=== PATIENT | female | born 1995 | race Caucasian/White ===

== ENCOUNTER 2024-05-04 08:11 | Inpatient (IN) | payer OTHER, SELFPAY ==
[2024-05-02 20:52] VITALS: BP 136/90
[2024-05-02 21:14] LABS: % Basophils 0.3 % (0-2); % Eosinophils 0.2 % (0-6); % Immature Granulocytes 0.6 % (0-0.5); % Lymphocytes 13.2 % (20.5-51.1); % Monocytes 7.5 % (1.7-9.3); % Neutrophils 78.2 % (42.2-75.2); Absolute Basophils 0.1 10^3/uL (0-0.2); Absolute Immature Granulocytes 0.1 10^3/uL (0-0.05); Absolute Lymphocytes 2.2 10^3/uL (1.2-3.4); Absolute Monocytes 1.3 10^3/uL (0.1-0.6); Hemoglobin 13.9 g/dL (12.0-16.0); Mean Corp Hgb Conc. 35.6 g/dL (33.0-37.0); Mean Corpuscular Hgb 30.8 pg (27.0-31.0); Mean Corpuscular Volume 86.5 fL (81.0-99.0); Mean Platelet Volume 9.6 fL (7.4-10.4); Nucleated Red Blood Cells % 0 %; Platelet Count 230 10^3/uL (130-400); Red Blood Cell Count 4.51 10^6/uL (4.20-5.40); Red Cell Dist. Width 11.1 % (11.5-14.5); White Blood Cell Count 16.6 10^3/uL (4.8-10.8)
[2024-05-02 21:17] LABS: Urine Albumin Negative (Neg - Trace); Urine Bilirubin Negative (Negative); Urine Character Clear (Clear); Urine Color Yellow; Urine Glucose Negative (Negative); Urine Ketone Negative (Negative); Urine Leukocyte Negative (Negative); Urine Nitrite Negative (Negative); Urine Occult Blood Negative (Negative); Urine Specific Gravity 1.015 (<1.030); Urine Urobilinogen Negative (Neg - 1+)
[2024-05-02 21:24] LABS: HCG, Serum Qualitative Screen Negative
--- NOTE | 2024-05-02 21:29 | ED.GENMED ---
History of Present Illness
General
Chief Complaint: Abdominal Pain
Source: patient
Exam Limitations: none
Time Seen by Provider: 05/02/24 21:18
Nursing documentation reviewed up to this point in time: agreed with
History of Present Illness
History of Present Illness:
29-year-old female presents to the ER for right lower quadrant abdominal pain. She says last week she had 24 hours of nausea/vomiting/diarrhea. Afterwards she had general bloating sensation for a few days and then she started to develop
periumbilical pain and fever over the weekend. Since then pain is localized to the right lower quadrant and has been constant and worsening. Has had continued fevers and so she was referred to the ER for assessment. She reports associated
anorexia. She has not had any dysuria, hematuria, change in frequency. Denies any vaginal bleeding or discharge. She denies any other complaints. She denies prior abdominal surgeries.
Review of Systems
Review of Systems
All Other Systems: ROS reviewed and negative except as documented in HPI and ROS
Constitutional: Reports fever and chills
Respiratory: Denies cough or trouble breathing
Cardiac: Denies chest pain
ABD/GI: Reports abdominal pain; Denies nausea, vomiting or diarrhea
: Denies dysuria, flank pain or bleeding
Musculoskeletal: Denies neck pain or back pain
Neurological: Denies headache
Phy Exam
Physical Exam
Physical Exam:
General: Awake, alert, oriented x3; no acute distress
Head: Normocephalic, atraumatic
Eyes: Conjunctiva normal, sclera anicteric
Throat: Airway intact, handling secretions
Neck: Trachea midline, supple without meningismus
Lungs: Clear to auscultation bilaterally, no wheezing, rales, rhonchi
Heart: Tachycardia with regular rhythm, no murmurs, gallops, or rubs
Abd: Soft, non distended, tender to palpation in the right lower quadrant with voluntary guarding
Back: No CVA tenderness
Neuro: No gross deficits
Skin: no rash
Extremities: Warm and well-perfused
Scores
Heart Failure Risk
Heart Failure Risk Score: Not Applicable
Heart Score for Chest Pain Patients
STEMI patient?: Not applicable
Withdrawal Assessment of Alcohol
Withdrawal Assessment Completed?: Not applicable
Sepsis
Sepsis Screening
Sepsis Assessment: Sepsis
Sepsis Screen
Sepsis Screen: Sepsis
Date: 05/02/24
Time: 23:34
Course
Orders/Labs/Results
Orders:
Orders
05/02/24 20:59
Test Result ONCE
05/02/24 21:04
Complete Blood Count/With Diff Urgent
Comprehensive Metabolic Panel Urgent
HCG, Serum Qualitative Screen Urgent
Lipase Urgent
05/02/24 21:06
Urinalysis Reflex To Culture Urgent
Date Specimen was Collected: 05/02/24
Time Specimen was Collected: 20:59
05/02/24 21:18
Iohexol [Omnipaque] See Protocol PO NOW STA
05/02/24 21:28
CT Abd/pelvis W Iv Cont Urgent
Comment:
Reason For Exam: RLQ pain
Acetaminophen [Tylenol] 1,000 mg PO NOW STA
05/02/24 21:45
0.9% Sodium Chloride 1000 ml [Nss] 1,000 ml IV 125 mls/hr
05/02/24 22:14
Piperacillin/Tazo 3.375 Gram [Zosyn] 3.375 gram in 50 ml IV NOW
05/02/24 22:15
0.9% Sodium Chloride 1000 ml [Nss] 1,000 ml IV BOLUS
Abnormal Lab Results
05/02/24
21:04
WBC 16.6 H 10^3/uL
(4.8-10.8)
RDW 11.1 L %
(11.5-14.5)
Abs Immat Gran (auto) 0.1 H 10^3/uL
(0-0.05)
Absolute Neuts (auto) 13.0 H 10^3/uL
(1.4-6.5)
Absolute Monos (auto) 1.3 H 10^3/uL
(0.1-0.6)
Immature Gran % 0.6 H %
(0-0.5)
Neutrophils % 78.2 H %
(42.2-75.2)
Lymphocytes % 13.2 L %
(20.5-51.1)
Sodium 134 L mmol/L
(135-145)
Chloride 96 L mmol/L
(98-107)
Glucose 118 H mg/dl
(70-99)
05/02/24 21:04
05/02/24 21:04
Vital Signs
Initial and Last Documented VS:
Initial Vital Signs
Temp Pulse Resp BP Pulse Ox
38.7 C H 129 18 136/90 96
05/02/24 20:52 05/02/24 20:52 05/02/24 20:52 05/02/24 20:52 05/02/24 20:52
Last Documented Vital Signs
Temp Pulse Resp BP Pulse Ox
37.6 C 129 18 128/80 98
05/02/24 22:49 05/02/24 20:52 05/02/24 20:52 05/02/24 23:00 05/02/24 23:00
MDM/Problems Addressed
Differential Diagnosis Includes:
Appendicitis, UTI, enteritis, ovarian cyst
MDM/Problems Addressed:
29-year-old female presents for evaluation of right lower quadrant pain and fever as described above. Febrile and tachycardic here but normotensive, normal pulse ox and respiratory rate. Physical exam as above. High clinical suspicion for
appendicitis. She had labs sent in triage including a CBC which showed a leukocytosis to 16.6. CMP is pending. Her hCG is negative. Her urinalysis is negative for infection. Will send for CT abdomen pelvis. Tylenol for fever. Maintenance
fluids, n.p.o. Reassess.
CT shows findings concerning for ruptured appendicitis with adjacent abscess. Patient given Zosyn. Discussed with general surgery who will admit to their service.
*Radiology
Radiology exam reviewed: radiology read reviewed
*Pulse Oximetry
Patient hypoxic: no
*Critical Care Note
Total Time (30-74mins, 75-104mins- exclusive of procedures): Not Applicable
Data Reviewed
Source: patient
Patient Management
Discussion with other providers: Missile Pad Mechanic (Discussed with general surgery) and Radiologist (Discussed with radiologist)
Escalation/DeEscalation of care consider admission/obs:
Admission indicated
ED Attending Note
-
Portions of this chart may have been created with voice recognition software.� Occasional wrong word or��sound alike� substitutions may have occurred due to the inherent limitations of voice recognition software.
Discharge Plan
Departure
Patient Disposition: Admit
Date of Disposition: 05/02/24
Time of Disposition: 22:59
Admit to doctor: Farhad
Presentation/result/management discussed w/ accepting MD/DO: Surgery
Discharge Problem:
Acute appendicitis
Prescriptions:
No Action
No Current Medications
0
Referrals:
Ileana Guillen MD [Family Provider] -
Interventions
Interventions:
*Risk Screen - Suicide Last Done: 05/02/24 20:55
*General Assessment Last Done: 05/02/24 20:55
*Neglect/Abuse Screening Last Done: 05/02/24 20:55
*ED- Fall Risk Assessment Last Done: 05/02/24 21:49
*ED COVID-19 Vaccine History Last Done: 05/02/24 21:49
NA-Xzpnsd-Irjmixblqo Assessment Last Done: 05/02/24 21:49
Discharge Date and Time
Print Language: BENINESE
[2024-05-02 21:34] VITALS: BP 132/85
[2024-05-02 21:35] LABS: ALT (SGPT) 17 U/L (0-35); AST (SGOT) 21 U/L (14-36); Albumin 4.5 g/dl (3.5-5.0); Alkaline Phosphatase 89 U/L (38-126); Blood Urea Nitrogen 9 mg/dl (7-17); Calcium 9.2 mg/dl (8.4-10.2); Carbon Dioxide 25 mmol/L (22-30); Chloride 96 mmol/L (98-107); Glucose 118 mg/dl (70-99); Potassium 3.9 mmol/L (3.5-5.1); Sodium 134 mmol/L (135-145); Total Bilirubin 0.9 mg/dl (0.2-1.3); Total Protein 7.6 g/dl (6.3-8.2); eGFR > 60.00
[2024-05-02 21:36] LABS: Lipase 88 U/L (23-300)
[2024-05-02] MEDS: TYLENOL 1000 MG PO (21:41)
[2024-05-02] MEDS: NSS 1000 IV ×2 (21:41→22:23)
[2024-05-02 21:49] VITALS: BMI 28.5
[2024-05-02 22:11] VITALS: BP 125/81
[2024-05-02] MEDS: ZOSYN 50 IV (22:22)
[2024-05-02 23:00] VITALS: BP 128/80
[2024-05-03] VITALS (7 sets, daily range): BP systolic 108–127; BP diastolic 66–78; BMI 25.9
--- NOTE | 2024-05-03 01:45 | HPS.HSE ---
Addendum entered and electronically signed by Pop Johnson MD 05/03/24 09:15:
I saw and examined the patient independently.
The Real Estate Appraiser Supervisor's note was reviewed and I agree with the note, assessment and plan except where noted below.
Comment: This is a 29-year-old female with no significant past medical or surgical history who presents with a nearly 1 week history of right lower quadrant abdominal pain with associated nausea, vomiting and diarrhea all of which have resolved. On
arrival she was febrile, tachycardic and had a leukocytosis to 16K. Focally tender to palpation in the right lower quadrant, without generalized peritonitis. I reviewed her CT scan personally which demonstrated a very dilated appendix with
significant inflammation in the right lower quadrant and free fluid extending down to the pelvis and an adjacent abscess was read by the overnight radiologist. She is clinically stable on antibiotics now.
After discussion of risk benefits and alternatives with the patient and her mother, we will plan for nonoperative management for now as she is at high risk for needing an ileus cecectomy and potentially open surgery.
IR consult for possible drain
N.p.o. for now, if no IR plans today will start with clears.
Continue IV antibiotics, IV fluids.
Original Note:
Family Physician
-
Family Physician: Ileana Guillen
Chief Complaint
-
Abdominal pain
History of Present Illness
Patient is a 29-year-old female with no significant past medical history who presents to the ER for right lower quadrant abdominal pain. She says last week she had 24 hours of nausea/vomiting/diarrhea. Afterwards she had general bloating sensation
for a few days and then she started to develop periumbilical pain and fever over the weekend. Since then pain is localized to the right lower quadrant and has been constant and worsening. She has had continued fevers and was referred to the ER for
assessment. She reports associated anorexia. She has not had any dysuria, hematuria, change in frequency. Denies any vaginal bleeding or discharge. She denies any other complaints. She denies prior abdominal surgeries.
In the emergency department, labs significant for leukocytosis, WBC 16.6, Na 134, Chloride 96, Glucose 116. HCG negative, Urinalysis negative for infection. Pt febrile oral temp 101.6 on admission to the ED and tachycardic, HR 129. Improved with
Acetaminophen.
CT abd/pelvis shows findings concerning for ruptured appendicitis with adjacent abscess.
Patient received IV fluids, Acetaminophen 1 g IV x 1, IV antibiotics - Zosyn 3.375 IV
ED provider, Dr. Steven Baig, discussed with General Surgery, Dr. Alatorre, who will admit patient to his service. Maintain IV fluids, NPO, IV antibiotics, pain medication and antiemetics.
Medical History
Past Medical History
Past Medical History: Reports None
Past Surgical History: Reports Other (wisdom teeth removal at age 15)
Social History
Tobacco: Non-smoker
Alcohol: Occasional
Drug: None
Personal: Single
Living: Other (lives with boyfriend)
Employment: Employed
Family History
Family History: Not pertinent
Allergies / Home Medications
Allergies reflects when Allergies were last updated in [facility].
Home Medications with original date entered in [facility]
Allergy/Medication List:
Patient Allergies
Allergy/AdvReac Type Severity Reaction Status Date / Time
No Known Allergies Allergy Unverified 05/02/24 20:54
Home Medications
�Medication �Instructions �Recorded
No Meds [No Current Medications] 05/02/24
Review of Systems
-
History Source: Patient
A 12 point ROS was completed and negative except as noted: Yes
Constitutional: Reports Fever, Weight Loss and Chills
EENT: Reports No Symptoms
Respiratory: Reports No Symptoms
Cardiac: Reports No Symptoms
Abdomen/GI: Reports Abdominal Pain (right lower quadrant)
: Reports No Symptoms
Musculoskeletal: Reports No Symptoms
Skin: Reports No Symptoms
Neurological: Reports No Symptoms
Endocrine: Reports No Symptoms
Hematologic/Lymphatic: Reports No Symptoms
Psych: Reports Calm
Physical Exam
Vital Signs
Vital Signs
Temp Pulse Resp BP Pulse Ox
99.6 F 129 18 116/71 97
05/02/24 22:49 05/02/24 20:52 05/02/24 20:52 05/03/24 00:00 05/03/24 00:45
Physical Exam
General: No Apparent Distress, Pain (tender right lower quadrant) and Fever
HEENT: Moist mucous membranes and PERRLA
Respiratory: Clear and Non Labored Respirations
Cardiac: S1/S2, Regular Rhythm and Tachycardia
GI: Tender (right lower quadrant)
Skin: Warm; No Jaundice
Neuro: AO x 3
Psych: Calm and Intact Judgment/Insight
Laboratory Results
-
Laboratory Results
Total Bilirubin 0.9 mg/dl (0.2-1.3) 05/02/24 21:04
AST 21 U/L (14-36) 05/02/24 21:04
ALT 17 U/L (0-35) 05/02/24 21:04
Alkaline Phosphatase 89 U/L (38-126) 05/02/24 21:04
Lipase 88 U/L (23-300) 05/02/24 21:04
Data Reviewed
-
CT Scan: Report Reviewed by me
Lab Data: Labs Reviewed by me
Impression/Plan
-
IMPRESSION:
Patient is a 29-year-old female with no significant past medical history who presents to the ER for right lower quadrant abdominal pain.
PLAN:
Acute abdominal pain/Acute appendicitis
Admit patient to General Surgery, Dr. Llamas
NPO at midnight
NSS @ 100 mls/hr
Continue IV antibiotics - Zosyn 3.375 g IV Q6H
Pain medications/antimetics PRN
DVT Prophylasixs: SCD's
Code Status: Full Code
[2024-05-03] MEDS: ZOSYN 50 IV ×4 (04:11→22:32)
--- NOTE | 2024-05-03 07:12 | PTCARENOTE ---
Pt admitted from ED into room 2130. Pt ambulatory to bed with no assistance. VSS. NSS @ 100ml/hr in R AC. Pt completed first round of CHG wipes and changed clothes. NPO maintained. Pt with no complaints at this time, call quiles within reach.
[2024-05-03 08:20] LABS: Hematocrit 34.4 % (37.0-47.0); Hemoglobin 12.1 g/dL (12.0-16.0); Mean Corp Hgb Conc. 35.2 g/dL (33.0-37.0); Mean Corpuscular Volume 88.2 fL (81.0-99.0); Mean Platelet Volume 10.1 fL (7.4-10.4); Platelet Count 211 10^3/uL (130-400); Red Cell Dist. Width 11.3 % (11.5-14.5); White Blood Cell Count 12.6 10^3/uL (4.8-10.8)
[2024-05-03 08:28] LABS: INR 1.16; PT 15.3 Sec (11.4-14.6)
[2024-05-03 09:19] LABS: Blood Urea Nitrogen 8 mg/dl (7-17); Calcium 8.5 mg/dl (8.4-10.2); Carbon Dioxide 25 mmol/L (22-30); Chloride 105 mmol/L (98-107); Estimated Creatinine Clearance 105 ml/min; Glucose 95 mg/dl (70-99); Potassium 3.9 mmol/L (3.5-5.1); Sodium 138 mmol/L (135-145); eGFR > 60.00
[2024-05-03] MEDS: NSS 1000 IV ×3 (09:34→22:35)
--- NOTE | 2024-05-03 11:49 | CM ---
Reviewed the chart notes and spoke with the patient and her parents at the bedside. The patient is admitted under observational status. The observational letter was provided and explained. CM answered questions regarding observational status to
best of her ability and directed the patient to contact insurance company with any additional questions.
The patient resides with her boyfriend in a second floor apartment with a flight of steps to enter. The patient will be staying with her parents at discharge for a couple of days during recovery. The patient reports no DME/VN/SNF in the past. The
patient confirmed her pharmacy of choice is the [facility]. CM continues to be available to patient/family and is monitoring medical plan for needs at discharge.
Plan: Discharge plans will depend on the patient's progress.
[2024-05-03] MEDS: TYLENOL 650 MG PO ×2 (15:26→19:53)
--- NOTE | 2024-05-03 18:33 | W.PN.UPDATE ---
Update Note
Progress Note Update
Patient seen and examined on evening rounds. Patient is up and about walking around the room, states her pain is well-controlled and that she had no issues with clear liquids. No diffuse tenderness or guarding. Still focally tender in the right
lower quadrant. Still fairly tachycardic but comfortable.
Will continue with plan as discussed earlier. Likely repeat CT scan on Wednesday and if there is a collection IR drain. I anticipate her being here through till Wednesday with course of oral antibiotics.
May need to get ID on board for home recs
If we are able to control this infection with drain and antibiotics we will plan for discharge with follow-up in 6 to 8 weeks for interval appendectomy.
[2024-05-04] MEDS: TYLENOL 650 MG PO ×4 (01:44→20:51)
[2024-05-04] MEDS: ZOSYN 50 IV ×4 (04:14→23:20)
[2024-05-04 07:46] VITALS: BP 123/76
--- NOTE | 2024-05-04 09:50 | CM ---
Reviewed the chart and spoke with the patient and her father at the bedside. Informed that the patient had a level of care change to inpatient. Patient ambulating around ad osmel. CM continues to be available to patient/family and is monitoring
medical plan for needs at discharge.
Plan: Discharge to home when medically stable. Parents will transport home.
--- NOTE | 2024-05-04 10:16 | W.PN.GS2 ---
Today's Communication / Plan
-
`
Assessment / Plan
-
Assessment: 29-year-old female with complicated acute appendicitis -perforation with phlegmon; no drainable abscess
Significant inflammatory reaction and surrounding soft tissue, cecum and terminal ileum with 1 week of symptoms
Tmax 103; afebrile since vital signs stable
Abdominal examination with localized rebound but no signs of generalized peritonitis
Given severity of acute appendicitis with surrounding phlegmon which would make appendectomy quite challenging and high risk for probable ileocecectomy we have elected to manage nonoperatively which patient appears to be adequately responding to.
Plan: Okay for full liquids but holding on further dietary advancement
Continue Zosyn
Will repeat CT imaging tomorrow 05/05/2024 to assess for stability/improvement
Repeat CBC tomorrow
Any of the patient's or her father's concerns or questions were confirmed to be fully addressed
Subjective Data
-
Date of Service: May 04, 2024
Patient seen and examined. Father at bedside.
She has been walking the hallways comfortably
Right lower quadrant pain essentially unchanged and described as being very mild.
Appetite fair, no nausea, no vomiting
Tolerating clear liquids but not much appetite for more food
Passing flatus and loose bowel movements
Feels a bit bloated -no worse than recently
Objective Data
-
Intake and Output
05/03/24 05/04/24 05/05/24
06:59 06:59 06:59
Intake Total 400 / 400 4020 / 4020
Balance 400 / 400 4020 / 4020
Intake:
Oral fluids 0 / 0 1370 / 1370
IV fluids (Total) 400 / 400 2450 / 2450
IV piggybacks 200 / 200
Other:
Number of approximated MODERATE 4 3
amounts of urine
Vital Signs
Temp Pulse Resp BP Pulse Ox
99.6 F 94 18 123/76 95
05/04/24 07:46 05/04/24 07:46 05/04/24 07:46 05/04/24 07:46 05/04/24 07:46
Lab Results
05/03/24 07:39
05/03/24 07:39
Calcium 8.5 mg/dl (8.4-10.2) 05/03/24 07:39
Total Bilirubin 0.9 mg/dl (0.2-1.3) 05/02/24 21:04
AST 21 U/L (14-36) 05/02/24 21:04
ALT 17 U/L (0-35) 05/02/24 21:04
Alkaline Phosphatase 89 U/L (38-126) 05/02/24 21:04
Total Protein 7.6 g/dl (6.3-8.2) 05/02/24 21:04
Albumin 4.5 g/dl (3.5-5.0) 05/02/24 21:04
Physical Exam
-
NAD AAOx3; comfortably standing at bedside and laid supine in hospital bed without any significant discomfort
ABD: Soft, nondistended, tenderness to palpation localizing to the right lower quadrant with voluntary guarding. No generalized tenderness. No percussion tenderness even in the right lower quadrant.
[2024-05-04 15:04] VITALS: BP 123/78
[2024-05-04 23:39] VITALS: BP 121/71
[2024-05-05] MEDS: TYLENOL PO (03:21)
[2024-05-05] MEDS: ZOSYN 50 IV ×4 (05:08→21:36)
[2024-05-05 07:03] LABS: % Basophils 0.2 % (0-2); % Eosinophils 2.5 % (0-6); % Immature Granulocytes 0.7 % (0-0.5); % Lymphocytes 16.8 % (20.5-51.1); % Monocytes 8.6 % (1.7-9.3); % Neutrophils 71.2 % (42.2-75.2); Absolute Eosinophils 0.2 10^3/uL (0-0.7); Absolute Immature Granulocytes 0.1 10^3/uL (0-0.05); Absolute Lymphocytes 1.4 10^3/uL (1.2-3.4); Absolute Monocytes 0.7 10^3/uL (0.1-0.6); Absolute Neutrophils 5.9 10^3/uL (1.4-6.5); Hematocrit 33.3 % (37.0-47.0); Hemoglobin 11.3 g/dL (12.0-16.0); Mean Corp Hgb Conc. 33.9 g/dL (33.0-37.0); Mean Corpuscular Hgb 30.3 pg (27.0-31.0); Mean Corpuscular Volume 89.3 fL (81.0-99.0); Mean Platelet Volume 10.1 fL (7.4-10.4); Nucleated Red Blood Cells % 0 %; Platelet Count 199 10^3/uL (130-400); Red Blood Cell Count 3.73 10^6/uL (4.20-5.40); Red Cell Dist. Width 11.4 % (11.5-14.5); White Blood Cell Count 8.3 10^3/uL (4.8-10.8)
[2024-05-05 07:19] LABS: Blood Urea Nitrogen 5 mg/dl (7-17); Carbon Dioxide 26 mmol/L (22-30); Chloride 102 mmol/L (98-107); Estimated Creatinine Clearance 105 ml/min; Glucose 94 mg/dl (70-99); Potassium 3.8 mmol/L (3.5-5.1); Sodium 139 mmol/L (135-145); eGFR > 60.00
[2024-05-05 07:45] VITALS: BP 117/76
[2024-05-05] MEDS: OMNIPAQUE 50 ML PO (07:59)
[2024-05-05] MEDS: TYLENOL 650 MG PO ×3 (08:00→19:49)
--- NOTE | 2024-05-05 09:28 | W.PN.GS2 ---
Addendum entered and electronically signed by ARMANI Frazier 05/05/24 10:31:
Sepsis present on arrival, now resolved
Addendum entered and electronically signed by Luis Enrique Allen MD 05/05/24 10:02:
I saw and examined the patient.
The Individual Pension Adviser's note was reviewed and I agree with the note.
Comment: VSS, low grade temp yesterday but none simce and no upward trend. WBC normalized, feels well, ambulating, pain improved, denies n/v, denies anorexia. Mild ttp to rlq on exam. Plan for rpt CT. Cont IV abx. If CT improved would consider DC on
PO abx.
Original Note:
Today's Communication / Plan
-
Repeat CT
Assessment / Plan
-
Assessment: 29-year-old female with complicated acute appendicitis -perforation with phlegmon; no drainable abscess on initial CT. Significant inflammatory reaction and surrounding soft tissue, cecum and terminal ileum with 1 week of symptoms
Tmax 100.7 yesterday; afebrile since with vital signs stable
Leukocytosis improving
Given severity of acute appendicitis with surrounding phlegmon which would make appendectomy quite challenging and high risk for probable ileocecectomy we have elected to manage nonoperatively which patient appears to be adequately responding to.
Plan:
Continue Zosyn
Will repeat CT imaging to assess for stability/improvement
Dietary advancement and dispo planning pending CT findings
Subjective Data
-
Date of Service: May 05, 2024
Patient seen and examined at bedside. Denies pain. Ambulating in room. Reports she generally feels well.
Objective Data
-
Intake and Output
05/04/24 05/05/24 05/06/24
06:59 06:59 06:59
Intake Total 4020 / 4020 1879
Balance 4020 / 4020 1880 / 1880
Intake:
Oral fluids 1370 / 1370 1280 / 1280
IV fluids (Total) 2450 / 2450 400 / 400
IV piggybacks 200 / 200 200 / 200
Other:
Number of approximated MODERATE 3 2
amounts of urine
Number of approximated LARGE 2
amounts of urine
Number of unmeasured liquid
stools
Rectum 3
Vital Signs
Temp Pulse Resp BP Pulse Ox
99.3 F 86 18 117/76 97
05/05/24 07:45 05/05/24 07:45 05/05/24 07:45 05/05/24 07:45 05/05/24 07:45
Lab Results
05/05/24 06:25
05/05/24 06:25
Calcium 9.0 mg/dl (8.4-10.2) 05/05/24 06:25
Total Bilirubin 0.9 mg/dl (0.2-1.3) 05/02/24 21:04
AST 21 U/L (14-36) 05/02/24 21:04
ALT 17 U/L (0-35) 05/02/24 21:04
Alkaline Phosphatase 89 U/L (38-126) 05/02/24 21:04
Total Protein 7.6 g/dl (6.3-8.2) 05/02/24 21:04
Albumin 4.5 g/dl (3.5-5.0) 05/02/24 21:04
Physical Exam
-
NAD AAOx3
ABD: Soft, nondistended, mild focal tenderness to RLQ. No generalized tenderness.
Skin: Pallor
--- NOTE | 2024-05-05 09:45 | CM ---
Reviewed the chart notes. Patient seen ambulating around ad osmel. CM continues to be available to patient/family and is monitoring medical plan for needs at discharge.
Plan: Discharge to home when medically stable. Parents will transport home.
--- NOTE | 2024-05-05 10:19 | PN.CDI ---
CDI
- -
CDI:
Physician Documentation Request
Admit Date: 05/04/24 08:11
Dear General Surgery,
Patient admitted for appendicitis.
H&P: 'On arrival she was febrile, tachycardic and had a leukocytosis to 16K...Continue IV antibiotics, IV fluids.'
Laboratory Tests
05/02/24 05/03/24
21:04 07:39
WBC 16.6 H 12.6 H
05/02/24
20:52
Temp 101.6 F H
05/02/24
20:52 05/03/24
02:40 05/03/24
15:20
Pulse 129 106 105
Please clarify which of the following most accurately describes the status of the patient's infection:
Sepsis, POA
- Systemic manifestations of infection, with 2 or more SIRS criteria which include:
- Fever >100.4 degrees F or hypothermia < 96.8 degrees F
- Leukocytosis - WBC > 12,000 or leukopenia - WBC < 4,000 or > 10% bands
- Tachycardia > 90 beats per minute
- Tachypnea - RR > 20 breaths per minute or PaCO2 , 32mmHg
Source: Merck Manual 2013
Localized Infection Only, Without Systemic Illness
- indicate the site/source, such as appendicitis etc.
Other
Use of terms such as suspected, likely, concern for, or probable (associated with a specific diagnosis that is being evaluated, monitored, or treated as if it exists) are acceptable and can be coded in the inpatient setting, when documented at the
time of discharge.
Thank you,
Deidra Larson
CDI Specialist
Please use your independent medical judgment in providing your response.
[2024-05-05 15:30] VITALS: BP 119/75
[2024-05-05 23:28] VITALS: BP 133/74
[2024-05-06] MEDS: TYLENOL PO ×2 (02:02→08:32)
[2024-05-06] MEDS: ZOSYN 50 IV ×2 (03:50→10:48)
[2024-05-06 06:36] LABS: % Basophils 0.2 % (0-2); % Eosinophils 2.8 % (0-6); % Lymphocytes 16.7 % (20.5-51.1); % Monocytes 7.9 % (1.7-9.3); % Neutrophils 71.4 % (42.2-75.2); Absolute Eosinophils 0.2 10^3/uL (0-0.7); Absolute Immature Granulocytes 0.1 10^3/uL (0-0.05); Absolute Lymphocytes 1.4 10^3/uL (1.2-3.4); Absolute Monocytes 0.6 10^3/uL (0.1-0.6); Absolute Neutrophils 5.8 10^3/uL (1.4-6.5); Hematocrit 32.7 % (37.0-47.0); Hemoglobin 11.2 g/dL (12.0-16.0); Mean Corp Hgb Conc. 34.3 g/dL (33.0-37.0); Mean Corpuscular Hgb 30.3 pg (27.0-31.0); Mean Corpuscular Volume 88.4 fL (81.0-99.0); Mean Platelet Volume 9.9 fL (7.4-10.4); Nucleated Red Blood Cells % 0 %; Platelet Count 210 10^3/uL (130-400); Red Cell Dist. Width 11.4 % (11.5-14.5); White Blood Cell Count 8.1 10^3/uL (4.8-10.8)
[2024-05-06 06:58] LABS: Blood Urea Nitrogen 8 mg/dl (7-17); Calcium 8.9 mg/dl (8.4-10.2); Carbon Dioxide 25 mmol/L (22-30); Chloride 106 mmol/L (98-107); Estimated Creatinine Clearance 105 ml/min; Glucose 101 mg/dl (70-99); Potassium 4.3 mmol/L (3.5-5.1); Sodium 139 mmol/L (135-145); eGFR > 60.00
[2024-05-06 07:50] VITALS: BP 128/78
--- NOTE | 2024-05-06 10:04 | W.PN.GS2 ---
Addendum entered and electronically signed by Ganesh Ray MD 05/06/24 10:14:
Patient seen and examined. Parents at bedside.
Tolerating regular diet. Mild cramps after dinner yesterday but promptly subsided.
Continued loose stools/diarrhea -expected given degree of inflammation around colon and small bowel.
Denies significant pain, moving more comfortably
No nausea
No malaise lethargy or significant fatigue
AFVSS
NAD AAOx3
ABD: Soft, nondistended, tenderness palpation localized in the right lower quadrant. Some involuntary guarding on deep palpation. No rebound or rigidity
A/P: 29-year-old female with complicated acute appendicitis -phlegmonous without abscess but with significant inflammatory reaction to the surrounding soft tissue, cecum and terminal ileum
Appears to be responding adequately to nonoperative management with antibiotics radiographically and clinically/subjectively
D/C home with 2-week course of Augmentin to start
Follow-up CT imaging after course of antibiotics
Outpatient surgical follow-up will be arranged as well
Probiotic
Original Note:
Today's Communication / Plan
-
Dispo planning
Assessment / Plan
-
Assessment: 29-year-old female with complicated acute appendicitis -perforation with phlegmon; no drainable abscess on initial CT. Significant inflammatory reaction and surrounding soft tissue, cecum and terminal ileum with 1 week of symptoms
Afebrile >24h, VSS
Leukocytosis resolved
Repeat CT with no abscess, no significant changes from previous although perhaps some mild improvement
Plan:
Continue regular diet as tolerated
Continue abx, transition to PO upon d/c for total of 2 week course
Ok for probiotic
Discharge to home with close outpatient follow up
Subjective Data
-
Date of Service: May 06, 2024
Patient seen and examined at bedside with Dr. Ray. Some cramping an hour or so after meals which resolved. Having some loose stools. No nausea, vomiting or fevers.
Objective Data
-
Intake and Output
05/05/24 05/06/24 05/07/24
06:59 06:59 07:59
Intake Total 1880 / 1879 1200 / 1200
Balance 0 / 1879 1200 / 1200
Intake:
Oral fluids 1280 / 1280 1200 / 1200
IV fluids (Total) 400 / 400
IV piggybacks 200 / 200
Other:
Number of approximated MODERATE 2 4
amounts of urine
Number of approximated LARGE 2
amounts of urine
Number of unmeasured liquid
stools
Rectum 3 3
Vital Signs
Temp Pulse Resp BP Pulse Ox
98.4 F 72 17 128/78 98
05/06/24 07:50 05/06/24 07:50 05/06/24 07:50 05/06/24 07:50 05/06/24 07:50
Lab Results
05/06/24 06:00
05/06/24 06:00
Calcium 8.9 mg/dl (8.4-10.2) 05/06/24 06:00
Total Bilirubin 0.9 mg/dl (0.2-1.3) 05/02/24 21:04
AST 21 U/L (14-36) 05/02/24 21:04
ALT 17 U/L (0-35) 05/02/24 21:04
Alkaline Phosphatase 89 U/L (38-126) 05/02/24 21:04
Total Protein 7.6 g/dl (6.3-8.2) 05/02/24 21:04
Albumin 4.5 g/dl (3.5-5.0) 05/02/24 21:04
Physical Exam
-
NAD AAOx3
ABD: Soft, nondistended, mild focal tenderness to RLQ. No generalized tenderness.
--- NOTE | 2024-05-06 10:06 | W.DCSUMMARY ---
Documented by User: [email or web address] Frazier 05/06/24 10:13
Discharge Summary
Discharge Data
Date of Admission: 05/03/24
Date of Discharge: 05/06/24
-
Pending Results: No
Hospital Course
29 yo female who presented with a one week history of right lower abdominal pain with fevers and tachycardia. Imaging and exam consistent with acute perforated appendicitis without abscess with resultant sepsis. She responded well to IV antibiotics
and bowel rest and was able to be managed nonoperatively. Repeat CT imaging after approximately 48 hours on antibiotics was without worsening inflammation and again no abscess was noted. Diet was able to be advanced and well tolerated with
resolution of leukocytosis and fevers and improvement in pain prior to discharge. She was discharged on oral antibiotics with outpatient follow up planned in the coming weeks.
Discharge Plan
-
Patient Disposition: Home (Routine Discharge)
Discharge Diagnosis/Procedures: Perforated appendicitis
Condition: Good
Diet: As tolerated and Regular
Activity: As tolerated
Driving Restrictions: As prior to admission
Bathing Restrictions: OK to Shower
Others Tests: CT at the end of April
Activity Restrictions/Additional Instructions:
If you develop a fever >100.5, worsening pain or nausea with vomiting please call your surgeon
Referrals:
Ileana Guillen MD [Family Provider] -
Ganseh Ray MD [Active] - in two to four weeks
Additional Discharge Medication Instructions: Take over the counter Acetaminophen or ibuprofen as needed for pain
Prescriptions:
New
amoxicillin-pot clavulanate 875-125 mg tablet
1 tab PO Q12 Qty: 22 0RF
Saccharomyces boulardii [Florastor] 250 mg capsule
250 mg PO BID Qty: 30 0RF
Discharge Orders:
Discharge Patient (As Directed); Ordered 05/06/24
Ordered By: Pat Damon
Discharge Date and Time
Print Language: BELIZEAN

Documented by User: Ganesh Ray MD 05/06/24 10:14
Discharge Summary
Discharge Data
Date of Admission: 05/04/24
Date of Discharge: 05/06/24
Discharge Plan
-
Patient Disposition: Home (Routine Discharge)
Discharge Diagnosis/Procedures: Perforated appendicitis
Condition: Good
Diet: As tolerated and Regular
Activity: As tolerated
Driving Restrictions: As prior to admission
Bathing Restrictions: OK to Shower
Others Tests: CT at the end of April
Activity Restrictions/Additional Instructions:
If you develop a fever >100.5, worsening pain or nausea with vomiting please call your surgeon
Referrals:
Ileana Guillen MD [Family Provider] -
Ganesh Ray MD [Active] - in two to four weeks
Additional Discharge Medication Instructions: Take over the counter Acetaminophen or ibuprofen as needed for pain
Prescriptions:
New
amoxicillin-pot clavulanate 875-125 mg tablet
1 tab PO Q12 Qty: 22 0RF
Saccharomyces boulardii [Florastor] 250 mg capsule
250 mg PO BID Qty: 30 0RF
Discharge Orders:
Discharge Patient (As Directed); Ordered 05/06/24
Ordered By: Pat Damon
Discharge Date and Time
Print Language: BELIZEAN
--- NOTE | 2024-05-06 10:16 | CM ---
Patient seen at bedside.
Discharge today-will be staying with parents before returning to her apartment
IMM n/a
PLAN: Home, no needs
family to transport
[2024-05-06 11:56] VITALS: BP 125/68
== END 2024-05-06 12:09 | disposition home or self-care (01) | DRG 871 ==
LOC: 2 NORTH 08:11
PROVIDERS: Emergency Medicine; Nurse Practitioner Family; Surgery; ADMITTING PHYSICIAN Surgery; EMERGENCY PHYSICIAN Emergency Medicine; FAMILY PHYSICIAN Family Medicine
DX: A41.9 Sepsis, unspecified organism (principal); K35.32 Acute appendicitis with perforation, localized peritonitis, and gangrene, without abscess
CPT/HCPCS: 74177; 80048; 80053; 81003; 83690; 84703; 85025; 85027; 85610; 93005; 96365; 99285; Q9967

== ENCOUNTER → 2024-05-22 11:31 | Outpatient (REF) | payer OTHER, SELFPAY | LOC: RAD 11:31 | PROVIDERS: ATTENDING PHYSICIAN Surgery; FAMILY PHYSICIAN Family Medicine | DX: K35.200 Acute appendicitis with generalized peritonitis, without perforation or abscess (principal) | CPT/HCPCS: 74177; Q9967 ==

== ENCOUNTER → 2024-08-17 10:49 | Outpatient (REF) | payer OTHER, SELFPAY | LOC: RAD 10:49 | PROVIDERS: ATTENDING PHYSICIAN Surgery; FAMILY PHYSICIAN Family Medicine | DX: K35.33 Acute appendicitis with perforation, localized peritonitis, and gangrene, with abscess (principal) | CPT/HCPCS: 74177; Q9967 ==

== ENCOUNTER 2024-11-14 06:26 | Day surgery (SDC) | payer OTHER, SELFPAY | END 2024-11-14 09:31 | disposition home or self-care (01) | LOC: GI 06:26 | PROVIDERS: ATTENDING PHYSICIAN Internal Medicine; FAMILY PHYSICIAN Family Medicine | DX: K62.1 Rectal polyp (principal); R93.3 Abnormal findings on diagnostic imaging of other parts of digestive tract | CPT/HCPCS: 45380; 88305 ==